=== PATIENT | male | born 1960 | race Caucasian/White ===

== ENCOUNTER 2020-01-28 17:47 | Observation (INO) | payer OTHER ==
--- NOTE | 2020-01-28 18:18 | EDM.PDOC ---
ED HPI GENERAL MEDICAL PROBLEM - General Chief Complaint: Neurological Problem Stated Complaint: [facility] Time Seen by Provider: 01/28/20 18:10 Source of Information: Reports: Patient History Limitations: Reports: No Limitations - History of Present Illness INITIAL COMMENTS - FREE TEXT/NARRATIVE: [place] was [place] from the [place] after law enforcement was called. [place] near [place] at 16:19 and he was lying in the cabin near the bathroom. He was bearly responsive. His girlfriend had been unable to contact him today. There was some empty etoh bottles arouind the scene. He has been known to drink into unresponsiveness. 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 THE LAST EPISODE HE ENDED UP WITH SURGERY AND A PLATE ON THE RT SIDE OF HIS HEAD. hE ALSO HAS A HISTORY OF VERY SEVERE MIGRAINE HEAdaches and sometimes he does not repond normally when he is in the midst of a headache. He did tell his girlfriend yesterday that he was having a migraine. [place] [facility] [place] dose get shots once per month to try to get him from drinking heavily. Onset: Unknown/Unsure, Other (Last known well was ) Duration: Hour(s): Location: Reports: Head Associated Symptoms: Reports: Headaches, Other (pt has a history of drinking very heavily. ) - Related Data Allergies Allergy/AdvReac Type Severity Reaction Status Date / Time No Known Allergies Allergy Verified 01/28/20 17:49 Home Meds: Home Meds *Carvedilol 0 mg PO ASDIRECTED 01/28/20 [History] *Duloxetine 0 mg PO ASDIRECTED 01/28/20 [History] *Gabapentin 0 mg PO ASDIRECTED 01/28/20 [History] *Loratadine 0 mg PO ASDIRECTED 01/28/20 [History] *Omeprazole 0 mg PO ASDIRECTED 01/28/20 [History] *Risperidone 0 mg PO ASDIRECTED 01/28/20 [History] *Sertraline 0 mg PO ASDIRECTED 01/28/20 [History] *Tadalafil 0 mg PO ASDIRECTED 01/28/20 [History] *Temazepam 0 mg PO ASDIRECTED 01/28/20 [History] ED ROS GENERAL - Review of Systems Review Of Systems: See Below Constitutional: Reports: No Symptoms HEENT: Reports: No Symptoms Respiratory: Reports: No Symptoms Cardiovascular: Reports: No Symptoms Endocrine: Reports: No Symptoms GI/Abdominal: Reports: No Symptoms : Reports: No Symptoms Musculoskeletal: Reports: No Symptoms Skin: Reports: No Symptoms - Physical Exam Exam: See Below Text/Narrative:: pt arrived after being found lying on the floor for a unknown amount of time . He had been drinking there were liquor bottles lying around. He had told his girlfrind that he had a migraine headache and he does drink sometimes to get rid of the pain. Exam Limited By: Altered Mental Status General Appearance: Alert, Other (pt is starting to answer questions and on first arrival he would bearly speak. pupils equal and reactive. ) Ears: Normal TMs Nose: Normal Inspection Throat/Mouth: Normal Inspection Head Exam: Scalp Hematoma, Other (pt has a slight swelling where he hit his left forehead. ) Neck: Normal Inspection Respiratory/Chest: No Respiratory Distress Cardiovascular: Regular Rate, Rhythm, Irregularly Irregular GI/Abdominal: Non-Tender (Male) Exam: Deferred Rectal (Males) Exam: Deferred Neuro Exam (Abbreviated): Alert, Oriented, Normal Cognition Back Exam: Normal Inspection Extremities: Other (pt has multiple abrasions on his knees and elebows) Psychiatric: Normal Affect Course - Vital Signs Last Recorded V/S: Last Vital Signs Temp 36.7 C 01/28/20 18:30 Pulse 80 01/28/20 18:30 Resp 17 01/28/20 18:30 BP 163/85 H 01/28/20 18:30 Pulse Ox 95 01/28/20 18:30 - Orders/Labs/Meds Orders: Active Orders 24 hr Category Date Time Status Sodium Chloride 0.9% [Normal Saline] 1,000 ml Med 01/28/20 18:30 Active IV ASDIRECTED Medication Orders Sodium Chloride (Normal Saline) 1,000 mls @ 500 mls/hr IV ASDIRECTED MEMO Last Admin: 01/28/20 18:43 Dose: 500 mls/hr Labs: Laboratory Tests 01/28/20 01/28/20 01/28/20 Range/Units 18:01 18:01 18:01 WBC 7.4 (4.5-11.0) K/uL RBC 3.88 L (4.30-5.90) M/uL Hgb 13.0 (12.0-15.0) g/dL Hct 36.9 L (40.0-54.0) % MCV 95 (80-98) fL MCH 34 H (27-31) pg MCHC 35 (32-36) % Plt Count 234 (150-400) K/uL Neut % (Auto) 65 (36-66) % Lymph % (Auto) 25 (24-44) % Mcleod % (Auto) 9 H (2-6) % Eos % (Auto) 1 L (2-4) % Baso % (Auto) 0 (0-1) % Sodium 140 (140-148) mmol/L Potassium 3.3 L (3.6-5.2) mmol/L Chloride 99 L (100-108) mmol/L Carbon Dioxide 25 (21-32) mmol/L Anion Gap 19.3 H (5.0-14.0) mmol/L BUN 8 D (7-18) mg/dL Creatinine 0.9 D (0.8-1.3) mg/dL Est Cr Clr Drug Dosing 99.40 mL/min Estimated GFR (MDRD) > 60 (>60) Glucose 96 (74-106) mg/dL Lactic Acid 6.0 H (0.4-2.0) mmol/L Calcium 8.3 L (8.5-10.1) mg/dL Total Bilirubin 0.9 (0.2-1.0) mg/dL AST 56 H (15-37) U/L ALT 46 (12-78) U/L Alkaline Phosphatase 152 H (46-116) U/L Creatine Kinase 787 H (39-308) U/L Total Protein 7.8 (6.4-8.2) g/dL Albumin 4.2 (3.4-5.0) g/dL Globulin 3.6 H (2.3-3.5) g/dL Albumin/Globulin Ratio 1.2 (1.2-2.2) Urine Color (YELLOW) Urine Appearance (CLEAR) Urine pH (5.0-8.0) Ur Specific [place] (1.008-1.030) Urine Protein (NEGATIVE) mg/dL Urine Glucose (UA) (NEGATIVE) mg/dL Urine Ketones (NEGATIVE) mg/dL Urine Occult Blood (NEGATIVE) Urine Nitrite (NEGATIVE) Urine Bilirubin (NEGATIVE) Urine Urobilinogen (0.2-1.0) EU/dL Ur Leukocyte Esterase (NEGATIVE) Urine RBC (0-5) Urine WBC (0-5) Ur Epithelial Cells Amorphous Sediment Urine Bacteria Urine Mucus Urine Opiates Screen (NEGATIVE) Ur Oxycodone Screen (NEGATIVE) Urine Methadone Screen (NEGATIVE) Ur Propoxyphene Screen (NEGATIVE) Ur Barbiturates Screen (NEGATIVE) Ur Tricyclics Screen (NEGATIVE) Ur Phencyclidine Scrn (NEGATIVE) Ur Amphetamine Screen (NEGATIVE) U Methamphetamines Scrn (NEGATIVE) Urine MDMA Screen (NEGATIVE) U Benzodiazepines Scrn (NEGATIVE) U Cocaine Metab Screen (NEGATIVE) U Marijuana (THC) Screen (NEGATIVE) Ethyl Alcohol mg/dL 01/28/20 01/28/20 01/28/20 Range/Units 18:01 18:04 18:44 WBC (4.5-11.0) K/uL RBC (4.30-5.90) M/uL Hgb (12.0-15.0) g/dL Hct (40.0-54.0) % MCV (80-98) fL MCH (27-31) pg MCHC (32-36) % Plt Count (150-400) K/uL Neut % (Auto) (36-66) % Lymph % (Auto) (24-44) % Mcleod % (Auto) (2-6) % Eos % (Auto) (2-4) % Baso % (Auto) (0-1) % Sodium (140-148) mmol/L Potassium (3.6-5.2) mmol/L Chloride (100-108) mmol/L Carbon Dioxide (21-32) mmol/L Anion Gap (5.0-14.0) mmol/L BUN (7-18) mg/dL Creatinine (0.8-1.3) mg/dL Est Cr Clr Drug Dosing mL/min Estimated GFR (MDRD) (>60) Glucose (74-106) mg/dL Lactic Acid (0.4-2.0) mmol/L Calcium (8.5-10.1) mg/dL Total Bilirubin (0.2-1.0) mg/dL AST (15-37) U/L ALT (12-78) U/L Alkaline Phosphatase (46-116) U/L Creatine Kinase (39-308) U/L Total Protein (6.4-8.2) g/dL Albumin (3.4-5.0) g/dL Globulin (2.3-3.5) g/dL Albumin/Globulin Ratio (1.2-2.2) Urine Color Yellow (YELLOW) Urine Appearance Slightly cloudy A (CLEAR) Urine pH 6.0 (5.0-8.0) Ur Specific [place] 1.015 (1.008-1.030) Urine Protein Negative (NEGATIVE) mg/dL Urine Glucose (UA) Negative (NEGATIVE) mg/dL Urine Ketones Trace H (NEGATIVE) mg/dL Urine Occult Blood Negative (NEGATIVE) Urine Nitrite Negative (NEGATIVE) Urine Bilirubin Negative (NEGATIVE) Urine Urobilinogen 0.2 (0.2-1.0) EU/dL Ur Leukocyte Esterase Negative (NEGATIVE) Urine RBC Not seen (0-5) Urine WBC Not seen (0-5) Ur Epithelial Cells Rare Amorphous Sediment Not seen Urine Bacteria Not seen Urine Mucus Not seen Urine Opiates Screen Negative (NEGATIVE) Ur Oxycodone Screen Presumptive positive H (NEGATIVE) Urine Methadone Screen Negative (NEGATIVE) Ur Propoxyphene Screen Negative (NEGATIVE) Ur Barbiturates Screen Negative (NEGATIVE) Ur Tricyclics Screen Negative (NEGATIVE) Ur Phencyclidine Scrn Negative (NEGATIVE) Ur Amphetamine Screen Negative (NEGATIVE) U Methamphetamines Scrn Negative (NEGATIVE) Urine MDMA Screen Negative (NEGATIVE) U Benzodiazepines Scrn Negative (NEGATIVE) U Cocaine Metab Screen Negative (NEGATIVE) U Marijuana (THC) Screen Negative (NEGATIVE) Ethyl Alcohol 361 mg/dL Meds: Medications Generic Name Dose Route Start Last Admin Trade Name Freq PRN Reason Stop Dose Admin Sodium Chloride 1,000 mls @ 500 mls/hr 01/28/20 18:30 01/28/20 18:43 Normal Saline IV 500 mls/hr ASDIRECTED [facility] Administration - Re-Assessments/Exams Free Text/Narrative Re-Assessment/Exam: 01/28/20 19:31 pt had a cat scan of the head which did not show acute findings. He was not responding well at first but that has imoproved since he has been here. His labs show dehydration. He has a etoh level of .360. fluids were starte on the pt. He had a cpk in 700 range. Departure - Departure Time of Disposition: 19:33 Disposition: Admitted As Inpatient 68 Condition: Fair Clinical Impression: Intoxication, Dehydration, Elevated CPK - Discharge Information Referrals: PCP,None [Primary Care Provider] - Forms: ED Department Discharge Care Plan Goals: admit to Dr murillo. Sepsis Event Note - Focused Exam Vital Signs: Vital Signs Temp Pulse Resp BP Pulse Ox 01/28/20 18:30 36.7 C 80 17 163/85 H 95 01/28/20 18:25 80 17 163/85 H 95 01/28/20 18:12 91 18 152/79 H 96 01/28/20 17:47 36.7 C 87 16 157/88 H 96 Date Exam was Performed: 01/28/20 Time Exam was Performed: 19:25 - My Orders Last 24 Hours: My Active Orders 01/28/20 18:30 Sodium Chloride 0.9% [Normal Saline] 1,000 ml IV ASDIRECTED - Assessment/Plan Last 24 Hours: My Active Orders 01/28/20 18:30 Sodium Chloride 0.9% [Normal Saline] 1,000 ml IV ASDIRECTED
--- NOTE | 2020-01-28 18:27 | CRLCT ---
INDICATION: Change in mental status TECHNIQUE: CT head without contrast. COMPARISON: Head CT 04/10/2014 FINDINGS: The patient is status post right parietal craniotomy with mesh bridging the defect. There is focal encephalomalacia within the high right parietal lobe with mild adjacent low-density, likely gliosis. No intracranial bleed or mass effect. Mild mucosal thickening paranasal sinuses. IMPRESSION: 1. No intracranial bleed or mass effect. 2. 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 Please note that all CT scans at this facility use dose modulation, iterative reconstruction, and/or weight-based dosing when appropriate to reduce radiation dose to as low as reasonably achievable. Dictated by Arsenio Juárez MD @ Jan 28 2020 6:19PM Signed by Dr. Arsenio Juárez @ Jan 28 2020 6:26PM
[2020-01-28] MEDS ORDERED: Sodium Chloride 0.9% 1,000 ML IV SCH (18:30)
[2020-01-28] MEDS ORDERED: Bacitracin Oint 1 GM U/D Packet TOP ONE (19:34)
--- NOTE | 2020-01-28 19:36 | PCM.HP.2 ---
H&P History of Present Illness - General Date of Service: 01/28/20 Admit Problem/Dx: Admission Diagnosis/Problem Admission Diagnosis/Problem Alcohol intoxication Source of Information: Patient, Provider History Limitations: Reports: Altered Mental Status (pt very confused ) - History of Present Illness Initial Comments - Free Text/Narative: CC: found down HPI: Gian presents to the emergency room by ambulance after being found down on the floor at his cabin. He is confused and provides very limited history. He is able to answer yes or no questions but that is about it. Per report his girlfriend talked to him yesterday and he reported that he was getting a migraine. She did not hear from him overnight or today and was unable to reach him so she had the police go check on him and they found him on the floor by the bathroom. He was very lethargic and unable to provide much history at that point. They did note that there were liquor bottles present in the cabin. He has perked up some since he has been in the emergency room. He does endorse a frontal headache but he is not able to tell me about the severity or the quality. It sounds like it some migraine headache close to his usual. He has not had any fevers. He does not feel short of breath. No abdominal pain is reported. He does admit to drinking yesterday to help with his migraine. Work-up in the emergency room revealed severe alcohol intoxication as well as significant dehydration. He is still very lethargic and is not safe for discharge home at this time. Vital signs are stable at this point. He will be admitted for observation and hydration. - Related Data Allergies/Adverse Reactions: Allergies Allergy/AdvReac Type Severity Reaction Status Date / Time No Known Allergies Allergy Verified 01/28/20 17:49 Home Medications: Home Meds *Carvedilol 0 mg PO ASDIRECTED 01/28/20 [History] *Duloxetine 0 mg PO ASDIRECTED 01/28/20 [History] *Gabapentin 0 mg PO ASDIRECTED 01/28/20 [History] *Loratadine 0 mg PO ASDIRECTED 01/28/20 [History] *Omeprazole 0 mg PO ASDIRECTED 01/28/20 [History] *Risperidone 0 mg PO ASDIRECTED 01/28/20 [History] *Sertraline 0 mg PO ASDIRECTED 01/28/20 [History] *Tadalafil 0 mg PO ASDIRECTED 01/28/20 [History] *Temazepam 0 mg PO ASDIRECTED 01/28/20 [History] Past Medical History Neurological History: Reports: Brain Injury, Migraines, Seizure Other Neuro History: TBI- x4 - Past Surgical History Neurological Surgical History: Reports: Other (See Below) Other Neurological Surgeries/Procedures: plate in head d/t prior bleed from TBI. Social & Family History - Family History Family Medical History: Unobtainable (Patient only able to answer yes or no questions at this time) - Tobacco Use Smoking Status *Q: Never Smoker - Recreational Drug Use Recreational Drug Use: No H&P Review of Systems - Review of Systems: Review Of Systems: See Below Free Text/Narrative: A complete 12 point review of systems was obtained. Pertinent positives and negatives are noted in the history of present illness. All other systems were reviewed and were negative except as noted. Exam - Exam Exam: See Below - Vital Signs Vital Signs: Last Vital Signs Temp 36.7 C 01/28/20 18:30 Pulse 80 01/28/20 18:30 Resp 17 01/28/20 18:30 BP 163/85 H 01/28/20 18:30 Pulse Ox 95 01/28/20 18:30 Weight: 147.418 kg - Exam Quality Assessment: Supplemental Oxygen General: Alert, Cooperative, Mild Distress, Lethargic. No: Oriented HEENT: Conjunctiva Clear. No: Mucosa Moist & [place] (Very dry) Neck: Supple, Trachea Midline Lungs: Clear to Auscultation, Normal Respiratory Effort Cardiovascular: Regular Rate, Regular Rhythm. No: Systolic Murmur GI/Abdominal Exam: Normal Bowel Sounds, Soft, Non-Tender, No Distention Extremities: No Pedal Edema. No: Increased Warmth Peripheral Pulses: 2+: Dorsalis Pedis (L), Dorsalis Pedis (R) Skin: Warm, Dry, Wound (Abrasions on both elbows as well as both knees. Also abrasion on his left forehead area. Left hand is wrapped with a bandage and has some dried blood.) Neuro Extensive - Mental Status: Alert, Slow Response to Commands. No: Oriented x3 Neuro Extensive - Motor, Sensory, Reflexes: Tremor. No: Dysarthria Psychiatric: Alert. No: Agitated - Patient Data Lab Results Last 24 hrs: Laboratory Results - last 24 hr 01/28/20 01/28/20 01/28/20 Range/Units 18:01 18:01 18:01 WBC 7.4 (4.5-11.0) K/uL RBC 3.88 L (4.30-5.90) M/uL Hgb 13.0 (12.0-15.0) g/dL Hct 36.9 L (40.0-54.0) % MCV 95 (80-98) fL MCH 34 H (27-31) pg MCHC 35 (32-36) % Plt Count 234 (150-400) K/uL Neut % (Auto) 65 (36-66) % Lymph % (Auto) 25 (24-44) % [place] % (Auto) 9 H (2-6) % Eos % (Auto) 1 L (2-4) % Baso % (Auto) 0 (0-1) % Sodium 140 (140-148) mmol/L Potassium 3.3 L (3.6-5.2) mmol/L Chloride 99 L (100-108) mmol/L Carbon Dioxide 25 (21-32) mmol/L Anion Gap 19.3 H (5.0-14.0) mmol/L BUN 8 D (7-18) mg/dL Creatinine 0.9 D (0.8-1.3) mg/dL Est Cr Clr Drug Dosing 99.40 mL/min Estimated GFR (MDRD) > 60 (>60) Glucose 96 (74-106) mg/dL Lactic Acid 6.0 H (0.4-2.0) mmol/L Calcium 8.3 L (8.5-10.1) mg/dL Total Bilirubin 0.9 (0.2-1.0) mg/dL AST 56 H (15-37) U/L ALT 46 (12-78) U/L Alkaline Phosphatase 152 H (46-116) U/L Creatine Kinase 787 H (39-308) U/L Total Protein 7.8 (6.4-8.2) g/dL Albumin 4.2 (3.4-5.0) g/dL Globulin 3.6 H (2.3-3.5) g/dL Albumin/Globulin Ratio 1.2 (1.2-2.2) Urine Color (YELLOW) Urine Appearance (CLEAR) Urine pH (5.0-8.0) Ur Specific [place] (1.008-1.030) Urine Protein (NEGATIVE) mg/dL Urine Glucose (UA) (NEGATIVE) mg/dL Urine Ketones (NEGATIVE) mg/dL Urine Occult Blood (NEGATIVE) Urine Nitrite (NEGATIVE) Urine Bilirubin (NEGATIVE) Urine Urobilinogen (0.2-1.0) EU/dL Ur Leukocyte Esterase (NEGATIVE) Urine RBC (0-5) Urine WBC (0-5) Ur Epithelial Cells Amorphous Sediment Urine Bacteria Urine Mucus Urine Opiates Screen (NEGATIVE) Ur Oxycodone Screen (NEGATIVE) Urine Methadone Screen (NEGATIVE) Ur Propoxyphene Screen (NEGATIVE) Ur Barbiturates Screen (NEGATIVE) Ur Tricyclics Screen (NEGATIVE) Ur Phencyclidine Scrn (NEGATIVE) Ur Amphetamine Screen (NEGATIVE) U Methamphetamines Scrn (NEGATIVE) Urine MDMA Screen (NEGATIVE) U Benzodiazepines Scrn (NEGATIVE) U Cocaine Metab Screen (NEGATIVE) U Marijuana (THC) Screen (NEGATIVE) Ethyl Alcohol mg/dL 01/28/20 01/28/20 01/28/20 Range/Units 18:01 18:04 18:44 WBC (4.5-11.0) K/uL RBC (4.30-5.90) M/uL Hgb (12.0-15.0) g/dL Hct (40.0-54.0) % MCV (80-98) fL MCH (27-31) pg MCHC (32-36) % Plt Count (150-400) K/uL Neut % (Auto) (36-66) % Lymph % (Auto) (24-44) % [place] % (Auto) (2-6) % Eos % (Auto) (2-4) % Baso % (Auto) (0-1) % Sodium (140-148) mmol/L Potassium (3.6-5.2) mmol/L Chloride (100-108) mmol/L Carbon Dioxide (21-32) mmol/L Anion Gap (5.0-14.0) mmol/L BUN (7-18) mg/dL Creatinine (0.8-1.3) mg/dL Est Cr Clr Drug Dosing mL/min Estimated GFR (MDRD) (>60) Glucose (74-106) mg/dL Lactic Acid (0.4-2.0) mmol/L Calcium (8.5-10.1) mg/dL Total Bilirubin (0.2-1.0) mg/dL AST (15-37) U/L ALT (12-78) U/L Alkaline Phosphatase (46-116) U/L Creatine Kinase (39-308) U/L Total Protein (6.4-8.2) g/dL Albumin (3.4-5.0) g/dL Globulin (2.3-3.5) g/dL Albumin/Globulin Ratio (1.2-2.2) Urine Color Yellow (YELLOW) Urine Appearance Slightly cloudy A (CLEAR) Urine pH 6.0 (5.0-8.0) Ur Specific [place] 1.015 (1.008-1.030) Urine Protein Negative (NEGATIVE) mg/dL Urine Glucose (UA) Negative (NEGATIVE) mg/dL Urine Ketones Trace H (NEGATIVE) mg/dL Urine Occult Blood Negative (NEGATIVE) Urine Nitrite Negative (NEGATIVE) Urine Bilirubin Negative (NEGATIVE) Urine Urobilinogen 0.2 (0.2-1.0) EU/dL Ur Leukocyte Esterase Negative (NEGATIVE) Urine RBC Not seen (0-5) Urine WBC Not seen (0-5) Ur Epithelial Cells Rare Amorphous Sediment Not seen Urine Bacteria Not seen Urine Mucus Not seen Urine Opiates Screen Negative (NEGATIVE) Ur Oxycodone Screen Presumptive positive H (NEGATIVE) Urine Methadone Screen Negative (NEGATIVE) Ur Propoxyphene Screen Negative (NEGATIVE) Ur Barbiturates Screen Negative (NEGATIVE) Ur Tricyclics Screen Negative (NEGATIVE) Ur Phencyclidine Scrn Negative (NEGATIVE) Ur Amphetamine Screen Negative (NEGATIVE) U Methamphetamines Scrn Negative (NEGATIVE) Urine MDMA Screen Negative (NEGATIVE) U Benzodiazepines Scrn Negative (NEGATIVE) U Cocaine Metab Screen Negative (NEGATIVE) U Marijuana (THC) Screen Negative (NEGATIVE) Ethyl Alcohol 361 mg/dL Result Diagrams: 01/28/20 18:01 01/28/20 18:01 Imaging Impressions Last 24 hrs: Head CT-images personally reviewed-no acute findings but there was noted evidence of a previous craniotomy and some encephalomalacia Sepsis Event Note - Evaluation Sepsis Screening Result: No Definite Risk - Focused Exam Vital Signs: Vital Signs Temp Pulse Resp BP Pulse Ox 01/28/20 18:30 36.7 C 80 17 163/85 H 95 01/28/20 18:25 80 17 163/85 H 95 01/28/20 18:12 91 18 152/79 H 96 01/28/20 17:47 36.7 C 87 16 157/88 H 96 Date Exam was Performed: 01/28/20 Time Exam was Performed: 19:41 *Q Meaningful Use (ADM) - VTE Risk Assess *Q Each Risk Factor Represents 1 Point: Age 41 - 59 years, Obesity ( BMI > 25 kg/m2 ) Total Score 1 Point Risk Factors: 2 Each Risk Factor Represents 2 Points: None Total Score 2 Point Risk Factors: 0 Each Risk Factor Represents 3 Points: None Total Score 3 Point Risk Factors: 0 Each Risk Factor Represents 5 Points: None Total Score 5 Point Risk Factors: 0 Venous Thromboembolism Risk Factor Score *Q: 2 - Problem List (1) Alcohol intoxication SNOMED Code(s): 60171933 ICD Code: F10.929 - ALCOHOL USE, UNSPECIFIED WITH INTOXICATION, UNSPECIFIED Status: Acute Current Visit: Yes Qualifiers: Complication of substance-induced condition: with delirium Qualified Code(s ): F10.921 - Alcohol use, unspecified with intoxication delirium (2) Rhabdomyolysis SNOMED Code(s): 875781207 ICD Code: M62.82 - RHABDOMYOLYSIS Status: Acute Current Visit: Yes Qualifiers: Rhabdomyolysis type: traumatic Encounter type: initial encounter Qualified Code(s): T79.6XXA - Traumatic ischemia of muscle, initial encounter (3) Hypokalemia SNOMED Code(s): 60404561 ICD Code: E87.6 - HYPOKALEMIA Status: Acute Current Visit: Yes (4) Dehydration, moderate SNOMED Code(s): 6954488745260 ICD Code: E86.0 - DEHYDRATION Status: Acute Current Visit: Yes Problem List Initiated/Reviewed/Updated: Yes Orders Last 24hrs: Active Orders 24 hr Category Date Time Status Patient Status Manage Transfer [TRANSFER] Routine ADT 01/28/20 19:29 Ordered Chest 1V Frontal [CR] Stat Exams 01/28/20 19:29 Ordered Sodium Chloride 0.9% [Normal Saline] 1,000 ml Med 01/28/20 18:30 Active IV ASDIRECTED Resuscitation Status Routine Resus Stat 01/28/20 19:29 Ordered Medication Orders Sodium Chloride (Normal Saline) 1,000 mls @ 500 mls/hr IV ASDIRECTED MEMO Last Admin: 01/28/20 18:43 Dose: 500 mls/hr Assessment/Plan Comment:: ASSESSMENT AND PLAN - Acute alcohol intoxication-patient admits to drinking heavily yesterday. History of similar binges when he has a migraine headache. Still fairly lethargic and fairly intoxicated. History is fairly difficult to gather at this time. Head CT was negative for acute pathology. -Banana bag -Additional IV fluids -Supplement thiamine and folate -Alcohol withdrawal protocol -Gabapentin twice daily Moderate dehydration-mucous membranes are very dry and his lactic acid level is 6. Vital signs are otherwise stable. Likely secondary to alcohol use and poor intake of fluids other than alcohol. -Aggressive IV fluids -Lactic acid level in the morning Hypokalemia-mild at this time and will be supplemented. Chronic medical problems-his girlfriend is able to provide names of medications but not doses. He appears to have a history of a seizure disorder. We will need to obtain doses or his home medications to verify. Maintenance issues - - DVT prophylaxis -mechanical - GI prophylaxis -not indicated - Nutrition -regular - Garcia catheter -not indicated CODE STATUS -full code Admission justification -patient will be referred observation status for hydration and close monitoring while he adri up Disposition -I would anticipate discharge home tomorrow Primary care physician -[facility] Nathaniel Borges M.D. - Mortality Measure Prognosis:: Good
--- NOTE | 2020-01-28 20:29 | CRLCR ---
INDICATION: Unresponsive TECHNIQUE: Chest 1 view COMPARISON: None FINDINGS: Cardiovascular and mediastinum: Heart size and vasculature are normal in caliber and appearance. Lungs and pleural spaces: Mild elevation right hemidiaphragm with minimal right basilar atelectasis. Bones and soft tissues: Status post cervicothoracic junction surgery. IMPRESSION: No acute or significant findings. Dictated by Arsenio Juárez MD @ Jan 28 2020 8:28PM Signed by Dr. Arsenio Juárez @ Jan 28 2020 8:29PM
[2020-01-28] MEDS ORDERED: Magnesium Hydroxide 400 MG/5 ML Susp 30 ML Cup PO PRN (20:41)
[2020-01-28] MEDS ORDERED: LORazepam 1 MG Tab PO SCH (20:41)
[2020-01-28] MEDS ORDERED: Potassium Chloride 20 MEQ, Lidocaine 1% 2 ML in Sodium Chloride 0.9% 100 ML IV SCH (20:41)
[2020-01-28] MEDS ORDERED: MVI, Adult with Vitamin K 10 ML, Thiamine 100 MG, Folic Acid 1 MG, Magnesium Sulfate 2 ... IV ONE ×5 (20:41)
[2020-01-28] MEDS ORDERED: LORazepam 2 MG/ML SDV IVPUSH PRN (20:41)
[2020-01-28] MEDS ORDERED: Ondansetron 4 MG/2 ML SDV IV PRN (20:41)
[2020-01-28] MEDS: Acetaminophen 325 MG Tab PO PRN (21:27)
[2020-01-28] MEDS: Ondansetron 4 MG Tab.DIS PO PRN (21:27)
[2020-01-28] MEDS: Gabapentin 300 MG Cap PO SCH (21:28)
[2020-01-28] MEDS: Melatonin 3 MG Tab PO SCH (21:28)
[2020-01-28] MEDS ORDERED: Potassium Chloride 20 MEQ in Premix Bag 2 BAG IV SCH (22:00)
[2020-01-28] MEDS: Potassium Chloride 100 ML IV SCH (22:17)
[2020-01-28] MEDS: LORazepam 2 MG/ML SDV IV SCH ×2 (22:33→23:26)
[2020-01-29] MEDS: Potassium Chloride 100 ML IV SCH (00:07)
[2020-01-29] MEDS: NS + KCl 20mEq/L 1,000 ML IV SCH ×3 (02:12→18:20)
[2020-01-29] MEDS: Acetaminophen 325 MG Tab PO PRN ×2 (03:25→18:34)
[2020-01-29] MEDS: LORazepam 2 MG/ML SDV IV SCH (03:28)
[2020-01-29] MEDS: Folic Acid 1 MG Tab PO SCH (08:23)
[2020-01-29] MEDS: Bacitracin Oint 28.35 GM Tube TOP SCH ×2 (08:23→21:05)
[2020-01-29] MEDS: Thiamine 100 MG Tab PO SCH (08:23)
[2020-01-29] MEDS: Gabapentin 300 MG Cap PO SCH ×2 (08:24→21:05)
--- NOTE | 2020-01-29 09:47 | PCM.PN ---
- General Info Date of Service: 01/29/20 Subjective Update: There were no acute events overnight. The patient has remained fairly lethargic though he is more interactive today. His vital signs have been stable. He remains very weak and requires significant assistance just to get out of bed. He is able to have at least a short conversation but does fall asleep intermittently even while we are talking. He is not complaining of significant pain other than some neck discomfort. No significant evidence for alcohol withdrawal this morning. Functional Status: Reports: Pain Controlled - Review of Systems General: Reports: Weakness Neurological: Reports: Confusion - Patient Data Vitals - Most Recent: Last Vital Signs Temp 35.8 C L 01/29/20 07:51 Pulse 67 01/29/20 07:51 Resp 17 01/29/20 07:51 BP 146/84 H 01/29/20 07:51 Pulse Ox 94 L 01/29/20 07:51 Weight - Most Recent: 136.078 kg I&O - Last 24 Hours: Intake & Output 01/28/20 01/29/20 01/29/20 22:59 06:59 14:59 Output Total 300 Balance -300 Lab Results Last 24 Hours: Laboratory Results - last 24 hr 01/28/20 01/28/20 01/28/20 Range/Units 18:01 18:01 18:01 WBC 7.4 (4.5-11.0) K/uL RBC 3.88 L (4.30-5.90) M/uL Hgb 13.0 (12.0-15.0) g/dL Hct 36.9 L (40.0-54.0) % MCV 95 (80-98) fL MCH 34 H (27-31) pg MCHC 35 (32-36) % Plt Count 234 (150-400) K/uL Neut % (Auto) 65 (36-66) % Lymph % (Auto) 25 (24-44) % [place] % (Auto) 9 H (2-6) % Eos % (Auto) 1 L (2-4) % Baso % (Auto) 0 (0-1) % Sodium 140 (140-148) mmol/L Potassium 3.3 L (3.6-5.2) mmol/L Chloride 99 L (100-108) mmol/L Carbon Dioxide 25 (21-32) mmol/L Anion Gap 19.3 H (5.0-14.0) mmol/L BUN 8 D (7-18) mg/dL Creatinine 0.9 D (0.8-1.3) mg/dL Est Cr Clr Drug Dosing 99.40 mL/min Estimated GFR (MDRD) > 60 (>60) Glucose 96 (74-106) mg/dL Lactic Acid 6.0 H (0.4-2.0) mmol/L Calcium 8.3 L (8.5-10.1) mg/dL Total Bilirubin 0.9 (0.2-1.0) mg/dL AST 56 H (15-37) U/L ALT 46 (12-78) U/L Alkaline Phosphatase 152 H (46-116) U/L Creatine Kinase 787 H (39-308) U/L Total Protein 7.8 (6.4-8.2) g/dL Albumin 4.2 (3.4-5.0) g/dL Globulin 3.6 H (2.3-3.5) g/dL Albumin/Globulin Ratio 1.2 (1.2-2.2) Urine Color (YELLOW) Urine Appearance (CLEAR) Urine pH (5.0-8.0) Ur Specific [place] (1.008-1.030) Urine Protein (NEGATIVE) mg/dL Urine Glucose (UA) (NEGATIVE) mg/dL Urine Ketones (NEGATIVE) mg/dL Urine Occult Blood (NEGATIVE) Urine Nitrite (NEGATIVE) Urine Bilirubin (NEGATIVE) Urine Urobilinogen (0.2-1.0) EU/dL Ur Leukocyte Esterase (NEGATIVE) Urine RBC (0-5) Urine WBC (0-5) Ur Epithelial Cells Amorphous Sediment Urine Bacteria Urine Mucus Urine Opiates Screen (NEGATIVE) Ur Oxycodone Screen (NEGATIVE) Urine Methadone Screen (NEGATIVE) Ur Propoxyphene Screen (NEGATIVE) Ur Barbiturates Screen (NEGATIVE) Ur Tricyclics Screen (NEGATIVE) Ur Phencyclidine Scrn (NEGATIVE) Ur Amphetamine Screen (NEGATIVE) U Methamphetamines Scrn (NEGATIVE) Urine MDMA Screen (NEGATIVE) U Benzodiazepines Scrn (NEGATIVE) U Cocaine Metab Screen (NEGATIVE) U Marijuana (THC) Screen (NEGATIVE) Ethyl Alcohol mg/dL 01/28/20 01/28/20 01/28/20 Range/Units 18:01 18:04 18:44 WBC (4.5-11.0) K/uL RBC (4.30-5.90) M/uL Hgb (12.0-15.0) g/dL Hct (40.0-54.0) % MCV (80-98) fL MCH (27-31) pg MCHC (32-36) % Plt Count (150-400) K/uL Neut % (Auto) (36-66) % Lymph % (Auto) (24-44) % [place] % (Auto) (2-6) % Eos % (Auto) (2-4) % Baso % (Auto) (0-1) % Sodium (140-148) mmol/L Potassium (3.6-5.2) mmol/L Chloride (100-108) mmol/L Carbon Dioxide (21-32) mmol/L Anion Gap (5.0-14.0) mmol/L BUN (7-18) mg/dL Creatinine (0.8-1.3) mg/dL Est Cr Clr Drug Dosing mL/min Estimated GFR (MDRD) (>60) Glucose (74-106) mg/dL Lactic Acid (0.4-2.0) mmol/L Calcium (8.5-10.1) mg/dL Total Bilirubin (0.2-1.0) mg/dL AST (15-37) U/L ALT (12-78) U/L Alkaline Phosphatase (46-116) U/L Creatine Kinase (39-308) U/L Total Protein (6.4-8.2) g/dL Albumin (3.4-5.0) g/dL Globulin (2.3-3.5) g/dL Albumin/Globulin Ratio (1.2-2.2) Urine Color Yellow (YELLOW) Urine Appearance Slightly cloudy A (CLEAR) Urine pH 6.0 (5.0-8.0) Ur Specific [place] 1.015 (1.008-1.030) Urine Protein Negative (NEGATIVE) mg/dL Urine Glucose (UA) Negative (NEGATIVE) mg/dL Urine Ketones Trace H (NEGATIVE) mg/dL Urine Occult Blood Negative (NEGATIVE) Urine Nitrite Negative (NEGATIVE) Urine Bilirubin Negative (NEGATIVE) Urine Urobilinogen 0.2 (0.2-1.0) EU/dL Ur Leukocyte Esterase Negative (NEGATIVE) Urine RBC Not seen (0-5) Urine WBC Not seen (0-5) Ur Epithelial Cells Rare Amorphous Sediment Not seen Urine Bacteria Not seen Urine Mucus Not seen Urine Opiates Screen Negative (NEGATIVE) Ur Oxycodone Screen Presumptive positive H (NEGATIVE) Urine Methadone Screen Negative (NEGATIVE) Ur Propoxyphene Screen Negative (NEGATIVE) Ur Barbiturates Screen Negative (NEGATIVE) Ur Tricyclics Screen Negative (NEGATIVE) Ur Phencyclidine Scrn Negative (NEGATIVE) Ur Amphetamine Screen Negative (NEGATIVE) U Methamphetamines Scrn Negative (NEGATIVE) Urine MDMA Screen Negative (NEGATIVE) U Benzodiazepines Scrn Negative (NEGATIVE) U Cocaine Metab Screen Negative (NEGATIVE) U Marijuana (THC) Screen Negative (NEGATIVE) Ethyl Alcohol 361 mg/dL 01/29/20 01/29/20 01/29/20 Range/Units 05:30 05:30 05:30 WBC 4.6 (4.5-11.0) K/uL RBC 3.67 L (4.30-5.90) M/uL Hgb 11.9 L (12.0-15.0) g/dL Hct 35.6 L (40.0-54.0) % MCV 97 (80-98) fL MCH 32 H (27-31) pg MCHC 33 (32-36) % Plt Count 188 (150-400) K/uL Neut % (Auto) (36-66) % Lymph % (Auto) (24-44) % [place] % (Auto) (2-6) % Eos % (Auto) (2-4) % Baso % (Auto) (0-1) % Sodium 145 (140-148) mmol/L Potassium 4.1 (3.6-5.2) mmol/L Chloride 105 (100-108) mmol/L Carbon Dioxide 30 (21-32) mmol/L Anion Gap 9.9 (5.0-14.0) mmol/L BUN 7 (7-18) mg/dL Creatinine 0.9 (0.8-1.3) mg/dL Est Cr Clr Drug Dosing 96.45 mL/min Estimated GFR (MDRD) > 60 (>60) Glucose 92 (74-106) mg/dL Lactic Acid 2.0 (0.4-2.0) mmol/L Calcium 7.7 L (8.5-10.1) mg/dL Total Bilirubin 0.7 (0.2-1.0) mg/dL AST 52 H (15-37) U/L ALT 42 (12-78) U/L Alkaline Phosphatase 141 H (46-116) U/L Creatine Kinase 523 H (39-308) U/L Total Protein 7.1 (6.4-8.2) g/dL Albumin 3.6 (3.4-5.0) g/dL Globulin 3.5 (2.3-3.5) g/dL Albumin/Globulin Ratio 1.0 L (1.2-2.2) Urine Color (YELLOW) Urine Appearance (CLEAR) Urine pH (5.0-8.0) Ur Specific [place] (1.008-1.030) Urine Protein (NEGATIVE) mg/dL Urine Glucose (UA) (NEGATIVE) mg/dL Urine Ketones (NEGATIVE) mg/dL Urine Occult Blood (NEGATIVE) Urine Nitrite (NEGATIVE) Urine Bilirubin (NEGATIVE) Urine Urobilinogen (0.2-1.0) EU/dL Ur Leukocyte Esterase (NEGATIVE) Urine RBC (0-5) Urine WBC (0-5) Ur Epithelial Cells Amorphous Sediment Urine Bacteria Urine Mucus Urine Opiates Screen (NEGATIVE) Ur Oxycodone Screen (NEGATIVE) Urine Methadone Screen (NEGATIVE) Ur Propoxyphene Screen (NEGATIVE) Ur Barbiturates Screen (NEGATIVE) Ur Tricyclics Screen (NEGATIVE) Ur Phencyclidine Scrn (NEGATIVE) Ur Amphetamine Screen (NEGATIVE) U Methamphetamines Scrn (NEGATIVE) Urine MDMA Screen (NEGATIVE) U Benzodiazepines Scrn (NEGATIVE) U Cocaine Metab Screen (NEGATIVE) U Marijuana (THC) Screen (NEGATIVE) Ethyl Alcohol mg/dL Med Orders - Current: Current Medications Acetaminophen (Tylenol) 650 mg PO Q4H PRN PRN Reason: Pain (Mild 1-3)/fever Last Admin: 01/29/20 03:25 Dose: 650 mg Bacitracin (Bacitracin Oint) 0 gm TOP BID [facility] Last Admin: 01/29/20 08:23 Dose: 1 applic Folic Acid (Folic Acid) 1 mg PO DAILY [facility] Last Admin: 01/29/20 08:23 Dose: 1 mg Gabapentin (Neurontin) 600 mg PO BID [facility] Last Admin: 01/29/20 08:24 Dose: 600 mg Potassium Chloride/Sodium Chloride (Normal Saline With 20 Meq Kcl) 1,000 mls @ 125 mls/hr IV ASDIRECTED [facility] Last Admin: 01/29/20 02:12 Dose: 125 mls/hr Ibuprofen (Motrin) 600 mg PO Q6H PRN PRN Reason: Pain/Fever Lorazepam (Ativan) 0.5 mg IVPUSH Q4H PRN PRN Reason: Nausea/Vomiting Lorazepam (Ativan) 0 mg PO ASDIRECTED [facility]; Protocol Last Admin: 01/28/20 21:26 Dose: 1 mg Lorazepam (Ativan) 0 mg IV ASDIRECTED [facility]; Protocol Last Admin: 01/29/20 03:28 Dose: 2 mg Magnesium Hydroxide (Milk Of Magnesia) 30 ml PO Q12H PRN PRN Reason: Constipation Melatonin (Melatonin) 9 mg PO BEDTIME [facility] Last Admin: 01/28/20 21:28 Dose: 9 mg Ondansetron HCl (Zofran Odt) 4 mg PO Q6H PRN PRN Reason: Nausea able to take PO Last Admin: 01/28/20 21:27 Dose: 4 mg Ondansetron HCl (Zofran) 4 mg IV Q6H PRN PRN Reason: Nausea/Vomiting Senna/Docusate Sodium (Senna Plus) 1 tab PO BID PRN PRN Reason: Constipation Thiamine HCl (Vitamin B-1) 100 mg PO DAILY [facility] Last Admin: 01/29/20 08:23 Dose: 100 mg Discontinued Medications Bacitracin (Bacitracin Oint 1 Gm) 1 dose TOP ONETIME ONE Stop: 01/28/20 19:35 Last Admin: 01/28/20 19:53 Dose: 1 dose Sodium Chloride (Normal Saline) 1,000 mls @ 500 mls/hr IV ASDIRECTED [facility] Last Admin: 01/28/20 18:43 Dose: 500 mls/hr Multivitamins/Minerals 10 ml/Thiamine HCl 100 mg/ Folic Acid 1 mg/ Magnesium Sulfate 2 gm/ Sodium Chloride 1,015.2 mls @ 500 mls/hr IV ONETIME ONE Stop: 01/28/20 22:42 Last Admin: 01/28/20 21:50 Dose: 500 mls/hr Potassium Chloride 20 meq/Lidocaine HCl 2 ml/ Sodium Chloride 112 mls @ 50 mls/ hr IV Q2H [facility] Stop: 01/29/20 00:40 Last Admin: 01/28/20 21:30 Dose: 50 mls/hr Potassium Chloride 20 meq/ (Premix) 0 mls @ 50 mls/hr IV ONETIME [facility] Potassium Chloride (Kcl 20 Meq In Water 100 Ml) 100 mls @ 50 mls/hr IV Q2H [facility] Stop: 01/29/20 01:59 Last Admin: 01/29/20 00:07 Dose: 50 mls/hr Lidocaine HCl (Xylocaine-Mpf 1%) 2 ml INJECT ONETIME [facility] Last Admin: 01/29/20 00:06 Dose: 2 ml - Exam Quality Assessment: No: Supplemental Oxygen General: Alert, Cooperative, No Acute Distress Lungs: Clear to Auscultation, Normal Respiratory Effort Cardiovascular: Regular Rate, Regular Rhythm GI/Abdominal Exam: Soft, No Distention Extremities: No Pedal Edema. No: Increased Warmth Skin: Warm, Dry Wound/Incisions: Other (abrasions on both elbows, both knees are dry and not bleeding ) Psy/Mental Status: Alert. No: Agitated Sepsis Event Note - Evaluation Sepsis Screening Result: No Definite Risk - Focused Exam Vital Signs: Vital Signs Temp Pulse Resp BP Pulse Ox 01/29/20 07:51 35.8 C L 67 17 146/84 H 94 L 01/29/20 06:00 73 19 98 01/29/20 04:00 36.3 C 89 18 166/78 H 95 01/29/20 02:00 94 20 187/95 H 96 01/29/20 00:00 35.7 C L 102 H 20 168/100 H 95 01/28/20 22:00 79 20 151/79 H 98 Date Exam was Performed: 01/29/20 Time Exam was Performed: 16:14 - Problem List & Annotations (1) Alcohol intoxication SNOMED Code(s): 22537931 Code(s): F10.929 - ALCOHOL USE, UNSPECIFIED WITH INTOXICATION, UNSPECIFIED Status: Acute Current Visit: Yes Qualifiers: Complication of substance-induced condition: with delirium Qualified Code(s ): F10.921 - Alcohol use, unspecified with intoxication delirium (2) Rhabdomyolysis SNOMED Code(s): 461484912 Code(s): M62.82 - RHABDOMYOLYSIS Status: Acute Current Visit: Yes Qualifiers: Rhabdomyolysis type: traumatic Encounter type: initial encounter Qualified Code(s): T79.6XXA - Traumatic ischemia of muscle, initial encounter (3) Hypokalemia SNOMED Code(s): 74000926 Code(s): E87.6 - HYPOKALEMIA Status: Acute Current Visit: Yes (4) Dehydration, moderate SNOMED Code(s): 8158732018803 Code(s): E86.0 - DEHYDRATION Status: Acute Current Visit: Yes - Problem List Review Problem List Initiated/Reviewed/Updated: Yes - My Orders Last 24 Hours: My Active Orders 01/28/20 19:29 Resuscitation Status Routine 01/28/20 20:41 Patient Status [ADT] Routine Antiembolic Devices [RC] .Routine Bedrest Bedside Commode [RC] ASDIRECTED CIWAA Assessment [RC] Q1H Cardiac Monitoring [RC] CONTINUOUS Intake and Output [RC] QSHIFT Notify Provider Vital Signs [RC] ASDIRECTED Notify Provider [RC] PRN Oxygen Therapy [RC] PRN VTE/DVT Education [RC] Per Unit Routine Vital Signs [RC] Q2HR Acetaminophen [Tylenol] 650 mg PO Q4H PRN Docusate Sodium/Sennosides [Senna Plus] 1 tab PO BID PRN Ibuprofen [Motrin] 600 mg PO Q6H PRN LORazepam [Ativan] 0.5 mg IVPUSH Q4H PRN LORazepam [Ativan] See Protocol IV ASDIRECTED LORazepam [Ativan] See Protocol PO ASDIRECTED Magnesium Hydroxide [Milk of Magnesia] 30 ml PO Q12H PRN NS + KCl 20mEq/L [Normal Saline with 20 mEq KCl] 1,000 ml IV ASDIRECTED Ondansetron [Zofran ODT] 4 mg PO Q6H PRN Ondansetron [Zofran] 4 mg IV Q6H PRN Sequential Compression Device [OM.PC] Routine 01/28/20 21:00 Gabapentin [Neurontin] 600 mg PO BID Melatonin 9 mg PO BEDTIME 01/28/20 Dinner Regular Diet [DIET] 01/29/20 09:00 Bacitracin [Bacitracin Oint] 0 gm TOP BID Folic Acid 1 mg PO DAILY Thiamine [Vitamin B-1] 100 mg PO DAILY - Plan Plan:: ASSESSMENT AND PLAN - Acute alcohol intoxication-patient admits to drinking heavily prior to admission. No evidence for alcohol withdrawal at this point. Still a fair amount more somnolent than I would expect but doing better today than yesterday. -Supplement thiamine and folate -Alcohol withdrawal protocol -Gabapentin twice daily Moderate dehydration-lactic acid level has normalized with hydration. Overall he is doing better. -Encourage oral intake Hypokalemia-improved with supplementation. Chronic medical problems-medications reviewed today. Patient reports increased somnolence over the past couple of weeks and is wondering if this is related to his medications. Seizure medications could be contributing. Maintenance issues - - DVT prophylaxis -mechanical - GI prophylaxis -not indicated - Nutrition -regular Disposition -I would anticipate discharge home tomorrow morning Primary care physician -[facility] Nathaniel Borges M.D.
[2020-01-29] MEDS: Ibuprofen 600 MG Tab PO PRN ×2 (13:28→23:25)
[2020-01-29] MEDS: Melatonin 3 MG Tab PO SCH (21:05)
[2020-01-29] MEDS: Carvedilol 25 MG Tab PO SCH (21:37)
[2020-01-30] MEDS: Acetaminophen 325 MG Tab PO PRN ×2 (00:46→04:57)
[2020-01-30] MEDS: NS + KCl 20mEq/L 1,000 ML IV SCH (02:09)
[2020-01-30] MEDS: Ibuprofen 600 MG Tab PO PRN (06:45)
[2020-01-30] MEDS: Ondansetron 4 MG Tab.DIS PO PRN (06:48)
[2020-01-30] MEDS: Bacitracin Oint 28.35 GM Tube TOP SCH (08:43)
[2020-01-30] MEDS: Thiamine 100 MG Tab PO SCH (08:44)
[2020-01-30] MEDS: Carvedilol 25 MG Tab PO SCH (08:44)
[2020-01-30] MEDS: Folic Acid 1 MG Tab PO SCH (08:44)
[2020-01-30] MEDS: Gabapentin 300 MG Cap PO SCH (08:46)
--- NOTE | 2020-01-30 09:07 | PCM.DCSUM1 ---
Discharge Summary - Hospital Course Brief History: 59-year-old male with history of multiple traumatic brain injuries, seizure disorder and hypertension who presented with decreased level of consciousness after being found on the floor. He was admitted for management of alcohol intoxication and severe dehydration. Diagnosis: Stroke: No - Discharge Data Discharge Date: 01/30/20 Discharge Disposition: Home, Self-Care 01 Condition: Good - Referral to Home Health Primary Care Physician: PCP None - Discharge Diagnosis/Problem(s) (1) Alcohol intoxication SNOMED Code(s): 75764111 ICD Code: F10.929 - ALCOHOL USE, UNSPECIFIED WITH INTOXICATION, UNSPECIFIED Status: Acute Qualifiers: Complication of substance-induced condition: with delirium Qualified Code(s ): F10.921 - Alcohol use, unspecified with intoxication delirium (2) Rhabdomyolysis SNOMED Code(s): 143166172 ICD Code: M62.82 - RHABDOMYOLYSIS Status: Acute Qualifiers: Rhabdomyolysis type: traumatic Encounter type: initial encounter Qualified Code(s): T79.6XXA - Traumatic ischemia of muscle, initial encounter (3) Hypokalemia SNOMED Code(s): 20630655 ICD Code: E87.6 - HYPOKALEMIA Status: Acute (4) Dehydration, moderate SNOMED Code(s): 1539597024747 ICD Code: E86.0 - DEHYDRATION Status: Acute - Patient Summary/Data Hospital Course: Ramesh presented to the emergency room after being found down on the floor of his cabin. Work-up in the emergency room revealed significant alcohol intoxication and severe dehydration.eg head CT was unremarkable for acute pathology. He was started on IV fluids and admitted to the hospital for further management. Overnight following admission there were no acute issues. He did not have significant evidence for alcohol withdrawal. His lactic acid level improved with hydration. He remained fairly somnolent the next day so we elected to keep him a second day. We held his usual home medications. There were no acute issues overnight. He was slowly improving throughout the day and is much better by the morning of discharge. We did talk about alcohol cessation and the potential dangers of ongoing use especially with his history of traumatic brain injuries. He will be talked to his primary care provider about treatment resources in his community. He will be talking with his primary care doctor also about reviewing medications to see if 1 of them may be contributing to the lethargy that he has been experiencing in the past couple of weeks. He is stable and safe for discharged home at this time. He will be going home with his fiance. No medication changes were made. - Patient Instructions Diet: Regular Diet as Tolerated Activity: As Tolerated Driving: Do Not Drive (do not drive today ) Showering/Bathing: May Shower Notify Provider of: Fever, Nausea and/or Vomiting Other/Special Instructions: 1. You were in the hospital for observation and management of alcohol intoxication as well as severe dehydration. Your condition has improved with IV fluid hydration. I strongly recommend that you avoid alcohol altogether as it can lead to a variety of significant and potentially life-threatening issues with your body. You should talk to your primary care doctor about alcohol cessation resources in your community. 2. Continue your usual home medications as previously prescribed. 3. Follow up with your primary care as scheduled. 4. You do have mild swelling of your right ankle. I suspect this is because of venous insufficiency rather than congestive heart failure. This can be treated with tight fitting socks and elevating your legs 3-4 times per day for 20 minutes per time. - Discharge Plan *PRESCRIPTION DRUG MONITORING PROGRAM REVIEWED*: Not Applicable *COPY OF PRESCRIPTION DRUG MONITORING REPORT IN PATIENT MNOTSE: Not Applicable Home Medications: Home Meds *Carvedilol 25 mg PO BID 01/28/20 [History] *Gabapentin 600 mg PO BID 01/28/20 [History] *Loratadine 10 mg PO DAILY PRN 01/28/20 [History] *Omeprazole 20 mg PO DAILY 01/28/20 [History] *Sumatriptan 50 mg PO ASDIRECTED PRN MDD 200mg 01/28/20 [History] *Temazepam 15 mg PO ASDIRECTED PRN 01/28/20 [History] Diclofenac Sodium 75 mg PO BID 01/29/20 [History] Lacosamide [Vimpat] 200 mg PO BID 01/29/20 [History] levETIRAcetam [Levetiracetam] 1,500 mg PO BID 01/29/20 [History] Oxygen Therapy Mode: Room Air Patient Handouts: Alcohol Use Disorder, Dehydration, Adult, [id number] - Discharge Summary/Plan Comment DC Time >30 min.: No - Patient Data Vitals - Most Recent: Last Vital Signs Temp 36.3 C 01/29/20 20:00 Pulse 67 01/30/20 08:44 Resp 16 01/30/20 06:00 BP 180/91 H 01/30/20 08:44 Pulse Ox 92 L 01/30/20 06:00 Weight - Most Recent: 136.078 kg I&O - Last 24 hours: Intake & Output 01/29/20 01/30/20 01/30/20 22:59 06:59 14:59 Intake Total 2697 2267 Output Total 600 200 Balance 2097 2067 Med Orders - Current: Current Medications Acetaminophen (Tylenol) 650 mg PO Q4H PRN PRN Reason: Pain (Mild 1-3)/fever Last Admin: 01/30/20 04:57 Dose: 650 mg Bacitracin (Bacitracin Oint) 0 gm TOP BID [facility] Last Admin: 01/30/20 08:43 Dose: 1 applic Carvedilol (Coreg) 25 mg PO BID [facility] Last Admin: 01/30/20 08:44 Dose: 25 mg Folic Acid (Folic Acid) 1 mg PO DAILY [facility] Last Admin: 01/30/20 08:44 Dose: 1 mg Gabapentin (Neurontin) 600 mg PO BID [facility] Last Admin: 01/30/20 08:46 Dose: 600 mg Potassium Chloride/Sodium Chloride (Normal Saline With 20 Meq Kcl) 1,000 mls @ 125 mls/hr IV ASDIRECTED [facility] Last Admin: 01/30/20 02:09 Dose: 125 mls/hr Ibuprofen (Motrin) 600 mg PO Q6H PRN PRN Reason: Pain/Fever Last Admin: 01/30/20 06:45 Dose: 600 mg Lorazepam (Ativan) 0.5 mg IVPUSH Q4H PRN PRN Reason: Nausea/Vomiting Lorazepam (Ativan) 0 mg PO ASDIRECTED [facility]; Protocol Last Admin: 01/28/20 21:26 Dose: 1 mg Lorazepam (Ativan) 0 mg IV ASDIRECTED [facility]; Protocol Last Admin: 01/29/20 03:28 Dose: 2 mg Magnesium Hydroxide (Milk Of Magnesia) 30 ml PO Q12H PRN PRN Reason: Constipation Melatonin (Melatonin) 9 mg PO BEDTIME [facility] Last Admin: 01/29/20 21:05 Dose: 9 mg Ondansetron HCl (Zofran Odt) 4 mg PO Q6H PRN PRN Reason: Nausea able to take PO Last Admin: 01/30/20 06:48 Dose: 4 mg Ondansetron HCl (Zofran) 4 mg IV Q6H PRN PRN Reason: Nausea/Vomiting Senna/Docusate Sodium (Senna Plus) 1 tab PO BID PRN PRN Reason: Constipation Thiamine HCl (Vitamin B-1) 100 mg PO DAILY [facility] Last Admin: 01/30/20 08:44 Dose: 100 mg Discontinued Medications Bacitracin (Bacitracin Oint 1 Gm) 1 dose TOP ONETIME ONE Stop: 01/28/20 19:35 Last Admin: 01/28/20 19:53 Dose: 1 dose Sodium Chloride (Normal Saline) 1,000 mls @ 500 mls/hr IV ASDIRECTED [facility] Last Admin: 01/28/20 18:43 Dose: 500 mls/hr Multivitamins/Minerals 10 ml/Thiamine HCl 100 mg/ Folic Acid 1 mg/ Magnesium Sulfate 2 gm/ Sodium Chloride 1,015.2 mls @ 500 mls/hr IV ONETIME ONE Stop: 01/28/20 22:42 Last Admin: 01/28/20 21:50 Dose: 500 mls/hr Potassium Chloride 20 meq/Lidocaine HCl 2 ml/ Sodium Chloride 112 mls @ 50 mls/ hr IV Q2H [facility] Stop: 01/29/20 00:40 Last Admin: 01/28/20 21:30 Dose: 50 mls/hr Potassium Chloride 20 meq/ (Premix) 0 mls @ 50 mls/hr IV ONETIME [facility] Potassium Chloride (Kcl 20 Meq In Water 100 Ml) 100 mls @ 50 mls/hr IV Q2H [facility] Stop: 01/29/20 01:59 Last Admin: 01/29/20 00:07 Dose: 50 mls/hr Lidocaine HCl (Xylocaine-Mpf 1%) 2 ml INJECT ONETIME [facility] Last Admin: 01/29/20 00:06 Dose: 2 ml
== END 2020-01-30 09:37 | disposition home or self-care (01) ==
LOC: JP.ED 17:47 → JP.ICU 19:29
PROVIDERS: ADMIT Internal Medicine; ATTEND Internal Medicine
DX: F10.121 Alcohol abuse with intoxication delirium (principal); T79.6XXA Traumatic ischemia of muscle, initial encounter; E87.6 Hypokalemia; E86.0 Dehydration; I10 Essential (primary) hypertension; G40.909 Epilepsy, unspecified, not intractable, without status epilepticus; Z79.899 Other long term (current) drug therapy; Z87.820 Personal history of traumatic brain injury; Y90.0 Blood alcohol level of less than 20 mg/100 ml
CPT/HCPCS: 36415; 70450; 71045; 80053; 80305; 80307; 81001; 82550; 83605; 85025; 85027; 96360; 99285; A9270; J2001; J2060; J3411; J3475; J3480; J7030; J7050; 96361; 96365; 96366; 96368; 96375; 96376; G0378; J3490

== ENCOUNTER 2022-05-06 12:28 | Observation (INO) | payer OTHER ==
[2022-05-06 14:37] LABS: ESTIMATED GFR 102 mL/min (>60)
[2022-05-06] MEDS ORDERED: hydrOXYzine HCL 100 MG/2 ML SDV IM ONE (16:07)
[2022-05-06] MEDS ORDERED: LORazepam 2 MG/ML SDV IVPUSH ONE (18:43)
[2022-05-06] MEDS ORDERED: Sodium Chloride 0.9% 10 ML Syringe FLUSH PRN (18:44)
[2022-05-06] MEDS ORDERED: Ondansetron 4 MG/2 ML SDV IV PRN (19:50)
[2022-05-06] MEDS ORDERED: Magnesium Hydroxide 400 MG/5 ML Susp 30 ML Cup PO PRN (19:50)
[2022-05-06] MEDS ORDERED: Morphine 2 MG/ML SYRINGE IVPUSH PRN (19:50)
[2022-05-06] MEDS: Melatonin 3 MG Tab PO PRN (21:07)
[2022-05-06] MEDS: oxyCODONE 5 MG Tab PO PRN (21:07)
[2022-05-06] MEDS: Carvedilol 12.5 MG Tab PO SCH (21:07)
[2022-05-06] MEDS: Acetaminophen 325 MG Tab PO PRN (21:07)
[2022-05-06] MEDS: NS + KCl 20mEq/L 1,000 ML IV SCH (21:12)
[2022-05-06] MEDS: levETIRAcetam 250 MG Tab PO SCH (21:13)
[2022-05-06] MEDS ORDERED: Potassium Chloride 20 MEQ in Premix Bag 1 BAG IV ONE (22:29)
[2022-05-06] MEDS ORDERED: Lidocaine 1% 5 ML VIAL INJECT ONE (22:31)
[2022-05-06] MEDS: Potassium Chloride 20 MEQ, Lidocaine 1% 2 ML in Sodium Chloride 0.9% 100 ML IV SCH (22:39)
[2022-05-06] MEDS: tiZANidine 2 MG Tab PO PRN (23:19)
[2022-05-07] MEDS ORDERED: Potassium Chloride 20 MEQ in Premix Bag 1 BAG IV ONE (01:00)
[2022-05-07] MEDS: NS + KCl 20mEq/L 1,000 ML IV SCH (04:46)
[2022-05-07] MEDS: Acetaminophen 325 MG Tab PO PRN ×2 (07:52→20:32)
[2022-05-07] MEDS: oxyCODONE 5 MG Tab PO PRN (07:52)
[2022-05-07] MEDS: Pantoprazole 40 MG Tab.CR PO SCH (07:54)
[2022-05-07] MEDS ORDERED: Potassium Chloride 20 MEQ Tab.ER PO ONE (08:45)
[2022-05-07] MEDS: buPROPion 150 MG Tab.SR PO SCH (10:04)
[2022-05-07] MEDS: levETIRAcetam 250 MG Tab PO SCH ×2 (10:04→20:33)
[2022-05-07] MEDS: Carvedilol 12.5 MG Tab PO SCH ×2 (10:05→20:34)
[2022-05-07] MEDS ORDERED: SUMAtriptan 50 MG Tab PO PRN (10:46)
[2022-05-07] MEDS: Ondansetron 4 MG Tab.DIS PO PRN (11:25)
[2022-05-07] MEDS: tiZANidine 2 MG Tab PO PRN ×2 (12:23→20:32)
[2022-05-07] MEDS: Hypromellose 0.3% Ophth Soln 15 ML Bottle EYEBOTH PRN ×2 (13:36→20:39)
[2022-05-07] MEDS: LORazepam 0.5 MG Tab PO PRN (18:09)
[2022-05-07] MEDS: Melatonin 3 MG Tab PO PRN (20:32)
[2022-05-08] MEDS: oxyCODONE 5 MG Tab PO PRN ×4 (01:12→19:23)
[2022-05-08] MEDS: Acetaminophen 325 MG Tab PO PRN ×4 (01:12→19:23)
[2022-05-08] MEDS: Pantoprazole 40 MG Tab.CR PO SCH (08:08)
[2022-05-08] MEDS: Carvedilol 12.5 MG Tab PO SCH ×2 (08:08→20:39)
[2022-05-08] MEDS: levETIRAcetam 250 MG Tab PO SCH ×2 (08:09→20:39)
[2022-05-08] MEDS: buPROPion 150 MG Tab.SR PO SCH (08:09)
[2022-05-08] MEDS ORDERED: Potassium Chloride 20 MEQ Tab.ER PO ONE ×2 (09:00→18:08)
[2022-05-08] MEDS: tiZANidine 2 MG Tab PO PRN (17:20)
[2022-05-08] MEDS: LORazepam 0.5 MG Tab PO PRN (17:20)
[2022-05-08] MEDS: Hypromellose 0.3% Ophth Soln 15 ML Bottle EYEBOTH PRN (22:28)
[2022-05-09] MEDS: oxyCODONE 5 MG Tab PO PRN ×2 (01:29→15:25)
[2022-05-09] MEDS: Acetaminophen 325 MG Tab PO PRN ×2 (01:29→15:26)
[2022-05-09] MEDS: tiZANidine 2 MG Tab PO PRN ×2 (03:21→10:00)
[2022-05-09] MEDS: Hypromellose 0.3% Ophth Soln 15 ML Bottle EYEBOTH PRN ×2 (08:55→20:52)
[2022-05-09] MEDS: buPROPion 150 MG Tab.ER PO SCH (08:56)
[2022-05-09] MEDS: levETIRAcetam 250 MG Tab PO SCH ×2 (08:57→20:53)
[2022-05-09] MEDS: Pantoprazole 40 MG Tab.CR PO SCH (08:58)
[2022-05-09] MEDS: Carvedilol 12.5 MG Tab PO SCH ×2 (08:58→20:53)
[2022-05-09] MEDS: Ondansetron 4 MG Tab.DIS PO PRN (11:16)
[2022-05-09] MEDS: SUMAtriptan 50 MG Tab PO PRN (16:59)
[2022-05-09] MEDS: LORazepam 0.5 MG Tab PO PRN (17:42)
[2022-05-10] MEDS: tiZANidine 2 MG Tab PO PRN ×2 (01:56→23:20)
[2022-05-10] MEDS: Melatonin 3 MG Tab PO PRN ×2 (01:56→20:57)
[2022-05-10] MEDS: LORazepam 0.5 MG Tab PO PRN ×3 (01:57→23:53)
[2022-05-10] MEDS: oxyCODONE 5 MG Tab PO PRN ×3 (01:57→20:56)
[2022-05-10] MEDS: SUMAtriptan 50 MG Tab PO PRN (07:10)
[2022-05-10] MEDS: Pantoprazole 40 MG Tab.CR PO SCH (07:11)
[2022-05-10] MEDS: levETIRAcetam 250 MG Tab PO SCH ×2 (09:42→20:43)
[2022-05-10] MEDS: buPROPion 150 MG Tab.ER PO SCH (09:42)
[2022-05-10] MEDS: Carvedilol 12.5 MG Tab PO SCH ×2 (10:10→20:43)
[2022-05-10] MEDS: Acetaminophen 325 MG Tab PO PRN ×2 (11:35→19:43)
[2022-05-10] MEDS: Hypromellose 0.3% Ophth Soln 15 ML Bottle EYEBOTH PRN (20:50)
[2022-05-10] MEDS: Ondansetron 4 MG Tab.DIS PO PRN (21:15)
[2022-05-11] MEDS: oxyCODONE 5 MG Tab PO PRN ×2 (01:05→09:34)
[2022-05-11] MEDS: Pantoprazole 40 MG Tab.CR PO SCH (07:55)
[2022-05-11] MEDS: Carvedilol 12.5 MG Tab PO SCH (09:27)
[2022-05-11] MEDS: levETIRAcetam 250 MG Tab PO SCH (09:28)
[2022-05-11] MEDS: buPROPion 150 MG Tab.ER PO SCH (09:29)
[2022-05-11] MEDS: SUMAtriptan 50 MG Tab PO PRN (10:29)
== END 2022-05-11 11:05 | disposition home or self-care (01) ==
LOC: JP.ED 12:28 → JP.MS 18:45
PROVIDERS: ADMIT Internal Medicine; ATTEND Hospitalist
DX: S06.5X0A Traumatic subdural hemorrhage without loss of consciousness, initial encounter (principal); I10 Essential (primary) hypertension; G43.909 Migraine, unspecified, not intractable, without status migrainosus; F10.29 Alcohol dependence with unspecified alcohol-induced disorder; E86.0 Dehydration; E87.6 Hypokalemia; G47.33 Obstructive sleep apnea (adult) (pediatric); M25.512 Pain in left shoulder; M25.562 Pain in left knee; Z98.890 Other specified postprocedural states; W19.XXXA Unspecified fall, initial encounter; Z79.899 Other long term (current) drug therapy; Z20.822 Contact with and (suspected) exposure to COVID-19
CPT/HCPCS: 36415; 70450; 72125; 73020; 73562; 80048; 80053; 80307; 81001; 83690; 85025; 85610; 87635; 93005; 96365; 96366; 96372; 96375; 97110; 97116; 97163; 97166; 97530; 97535; 99285; A9270; G0378; J2060; J2270; J2405; J3410; J3480; Q0162; 96374; U0002

== ENCOUNTER 2025-07-26 11:08 | Emergency (ER) | payer OTHER ==
[2025-07-26 11:49] LABS: BASOPHILS ABSOLUTE AUTO 0.00 K/uL (0.00-0.10); BASOPHILS PERCENT AUTO 0.0 % (0.1-1.3); EOSINOPHILS ABSOLUTE AUTO 0.02 K/uL (0.00-0.40); EOSINOPHILS PERCENT AUTO 0.3 % (0.0-5.4); IMMATURE GRAN ABSOLUTE AUTO 0.02 K/uL (0.00-0.23); IMMATURE GRAN PERCENT AUTO 0.3 % (0.0-0.7); LYMPHOCYTES ABSOLUTE AUTO 1.29 K/uL (0.8-3.3); LYMPHOCYTES PERCENT AUTO 21.0 % (11.4-47.7); MONOCYTES ABSOLUTE AUTO 0.26 K/uL (0.20-0.90); MONOCYTES PERCENT AUTO 4.2 % (3.3-12.6); NEUTROPHILS ABSOLUTE AUTO 4.55 K/uL (1.0-7.6); NEUTROPHILS PERCENT AUTO 74.2 % (40.0-78.1); PLATELET COUNT,PLT 459 K/uL (130-375); RED BLOOD CELL COUNT 3.81 M/uL (4.14-5.76); WHITE BLOOD CELL COUNT,WBC 6.1 K/uL (3.2-11.0)
[2025-07-26 12:10] LABS: A/G RATIO 1.3 (1.2-2.2); ALANINE AMINOTRANSFERASE,ALT 69 U/L (12-78); ASPARTATE AMNIOTRANSFERASE,AST 67 U/L (15-37); BILIRUBIN TOTAL 0.9 mg/dL (0.2-1.0); BLOOD UREA NITROGEN,BUN 6 mg/dL (7-18); CARBON DIOXIDE,CO2 27 mmol/L (21-32); CHLORIDE,CL 105 mmol/L (100-108); CREATININE 0.7 mg/dL (0.8-1.3); EST CRCL DRUG DOSING (CG) 118.56 mL/min; ESTIMATED GFR 104 mL/min (>60); GLUCOSE RANDOM 103 mg/dL (74-106); POTASSIUM,K 3.9 mmol/L (3.6-5.2); PROTEIN TOTAL,TP 7.9 g/dL (6.4-8.2); SODIUM,NA 145 mmol/L (140-148)
[2025-07-26 13:48] LABS: APPEARANCE,URINE CLEAR (CLEAR); GLUCOSE,URINE NEGATIVE (NEGATIVE); OCCULT BLOOD,URINE NEGATIVE (NEGATIVE)
[2025-07-26 13:54] LABS: SQUAMOUS EPITHELIAL CELLS,UR RARE /HPF; UROTHELIAL CELLS,URINE NOT SEEN /HPF
== END 2025-07-26 15:42 | disposition home or self-care (01) ==
LOC: JP.ED 11:08
DX: A04.72 Enterocolitis due to Clostridium difficile, not specified as recurrent (principal); E86.0 Dehydration; I10 Essential (primary) hypertension; Z79.899 Other long term (current) drug therapy
CPT/HCPCS: 36415; 80053; 81001; 85025; 96360; 96361; 99284; 99285; C1758; J7030